=== PATIENT | female | born 1975 | race Caucasian/White ===

== ENCOUNTER 2016-10-04 20:49 | Emergency (ER) | payer BC ==
[2016-10-04] MEDS: NS 0.9% 1000 ML* 2,000 ML IV ONE ×2 (21:20→21:21)
[2016-10-04 21:21] LABS: Hematocrit 37 % (35-47); Hemoglobin 12.4 g/dl (12.0-16.0); Mean Corpuscular HGB Conc 34 g/dl (31-36); Mean Corpuscular Hemoglobin 31 pg (27-31); Mean Corpuscular Volume 92 fL (80-97); Mean Platelet Volume 9 um3 (7.4-10.4); Red Blood Count 3.96 10^6/ul (4.0-5.4); Red Cell Distribution Width 14 % (10.5-15); White Blood Count 13.3 10^3/ul (3.5-10.8)
[2016-10-04 21:39] LABS: ALT 47 U/L (7-52); Albumin 3.7 g/dL (3.2-5.2); Alkaline Phosphatase 52 U/L (34-104); BUN/Creatinine Ratio 16.5 (8-20); Blood Urea Nitrogen 15 mg/dL (6-24); C Reactive Protein 11.42 mg/L (< 5.00); CO2 Carbon Dioxide 21 mmol/L (22-32); Calcium 9.1 mg/dL (8.6-10.3); Chloride 102 mmol/L (101-111); EGFR African American 87.2 (>60); EGFR Non-African American 67.8 (>60); Globulin 2.3 g/dL (2-4); Sodium 125 mmol/L (133-145)
[2016-10-04 21:45] LABS: Glucose 575 mg/dL (70-100)
--- NOTE | 2016-10-04 22:52 | RAD ---
Indication: Post coital heavy vaginal bleeding. Comparison: November 05, 2013 Technique: Transvaginal pelvic ultrasound. Report: 10.1 x 4.2 x 4.9 cm anteverted uterus. No uterine lesions evident. 8.2 mm endometrium. No fluid evident in the endocervical canal. Only trace free fluid in the cul-de-sac. Neither the RIGHT or LEFT ovary could be visualized. 1.2 x 1.2 x 1.5 cm anechoic structure in the RIGHT adnexal region is low suspicion based on morphology and small size. IMPRESSION: 1. No abnormality of the uterus or endometrium evident. 2. Neither ovary could be definitively visualized. 3. Very low suspicion 1.2 cm cystic structure in the RIGHT adnexal region. This may represent an exophytic ovarian cyst or a paraovarian cyst.
[2016-10-04] MEDS ORDERED: Insulin REGULAR(*) 1 UNITS UNIT IV PUSH ONE (23:19)
[2016-10-04] MEDS ORDERED: NS 0.9% 1000 ML* 1,000 ML IV ONE (23:20)
[2016-10-05 00:11] LABS: Hematocrit 31 % (35-47); Hemoglobin 10.3 g/dl (12.0-16.0); Mean Corpuscular HGB Conc 33 g/dl (31-36); Mean Corpuscular Hemoglobin 30 pg (27-31); Mean Corpuscular Volume 92 fL (80-97); Mean Platelet Volume 9 um3 (7.4-10.4); Red Blood Count 3.43 10^6/ul (4.0-5.4); Red Cell Distribution Width 14 % (10.5-15); White Blood Count 13.3 10^3/ul (3.5-10.8)
[2016-10-05 00:35] LABS: Urine Bacteria Absent (Absent); Urine Bilirubin Negative (Negative); Urine Glucose 3+(>=500 mg/dL) (Negative); Urine Nitrite Negative (Negative)
[2016-10-05 01:11] VITALS: BP 107/58
--- NOTE | 2016-10-05 12:19 | ED ---
Brett Lopez Matthew, scribed for Benton Butler MD on 10/04/16 at 2108 . GI/ HPI - HPI Summary HPI Summary: A 41 y/o female presents to the ED by EMS with sudden, constant vaginal bleeding since 18:30 today s/p intercourse. Associated symptoms included hypotension and tachycardia per EMS, dizziness, and diaphoresis. She denies any foreign bodies during intercourse. The patient is not aware of any pregnancies. She is . Her BP upon arrival was 151/82 per EMS. Her lowest recorded BP was . LNMP was 3 weeks ago. SHx includes . PMHx: diabetes, HTN, and hypothyroidism. - History of Current Complaint Chief Complaint: EDBleedingDisorder Time Seen by Provider: 10/04/16 20:53 Stated Complaint: VAG BLEEDING Hx Obtained From: Patient Onset/Duration: Started Hours Ago, Atraumatic, Still Present Timing: Constant Severity: Moderate Current Severity: Moderate Vaginal Bleeding Description: Bright Red Pain Intensity: 0 Associated Signs and Symptoms: Positive: Dizziness, Diaphoresis Additional Signs & Symptoms: Positive: Vaginal Bleeding - Allergy/Home Medications Allergies/Adverse Reactions: Allergies Allergy/AdvReac Type Severity Reaction Status Date / Time No Known Allergies Allergy Verified 09/22/12 13:05 PMH/Surg Hx/FS Hx/Imm Hx Endocrine/Hematology History: Reports: Hx Diabetes, Hx Thyroid Disease - Cancer History Hx Chemotherapy: No Hx Radiation Therapy: No Infectious Disease History: No Infectious Disease History: Denies: Traveled Outside the [place] in Last 30 Days - Family History Family History: No FHx of Breast CA. - Social History Lives: With Family Substance Use Type: Reports: None Smoking Status (MU): Never Smoked Tobacco Review of Systems Positive: Skin Diaphoresis Eyes: Negative ENT: Negative Cardiovascular: Negative Respiratory: Negative Gastrointestinal: Negative Genitourinary: Other - vaginal bleeding Musculoskeletal: Negative Skin: Negative Neurological: Other - Dizziness Psychological: Normal All Other Systems Reviewed And Are Negative: Yes Physical Exam - Summary Physical Exam Summary: VITAL SIGNS: Reviewed. GENERAL: Patient is a well developed and nourished male who is in mild distress secondary to the CP. Patient is not in any acute respiratory distress. HEAD AND FACE: No signs of trauma. No ecchymosis, hematomas or skull depressions. No sinus tenderness. EYES: PERRLA, EOMI x 2, No injected conjunctiva, no nystagmus. EARS: Hearing grossly intact. Ear canals and tympanic membranes are within normal limits. MOUTH: Oropharynx within normal limits. NECK: Supple, trachea is midline, no adenopathy, no JVD, no carotid bruit, no c- spine tenderness, neck with full ROM. CHEST: Symmetric, no tenderness at palpation LUNGS: Clear to auscultation bilaterally. No wheezing or crackles. CVS: Regular rate and rhythm, S1 and S2 present, no murmurs or gallops appreciated. ABDOMEN: Soft, non-tender. No signs of distention. No rebound no guarding, and no masses palpated. Bowel sounds are normal. EXTREMITIES: FROM in all major joints, no edema, no cyanosis or clubbing. NEURO: Alert and oriented x 3. No acute neurological deficits. Speech is normal and follows commands. 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 External genitalia: within normal limits except for blood clots. No rashes, lesions or ecchymosis. Speculum exam: vaginal jacinto with no lesions, masses, or rashes, no lacerations were visualized. Cervix normal. No CMTs. No adnexal masses. Triage Information Reviewed: Yes Vital Signs On Initial Exam: Initial Vitals Temp Pulse Resp BP Pulse Ox 98.2 F 106 20 125/88 95 10/04/16 20:55 10/04/16 20:55 10/04/16 20:55 10/04/16 20:55 10/04/16 20:55 Vital Signs Reviewed: Yes Diagnostics - Vital Signs Vital Signs Temp Pulse Resp BP Pulse Ox 10/04/16 20:55 98.2 F 106 20 125/88 95 - Laboratory Lab Results: Lab Results 10/04/16 10/04/16 10/04/16 Range/Units 21:08 21:08 21:08 WBC 13.3 H (3.5-10.8) 10^3/ul RBC 3.96 L (4.0-5.4) 10^6/ul Hgb 12.4 (12.0-16.0) g/dl Hct 37 (35-47) % MCV 92 (80-97) fL MCH 31 (27-31) pg MCHC 34 (31-36) g/dl RDW 14 (10.5-15) % Plt Count 212 (150-450) 10^3/ul MPV 9 (7.4-10.4) um3 Neut % (Auto) 78.6 (38-83) % Lymph % (Auto) 13.6 L (25-47) % [place] % (Auto) 5.9 (1-9) % Eos % (Auto) 1.1 (0-6) % Baso % (Auto) 0.8 (0-2) % Absolute Neuts (auto) 10.4 H (1.5-7.7) 10^3/ul Absolute Lymphs (auto) 1.8 (1.0-4.8) 10^3/ul Absolute Monos (auto) 0.8 (0-0.8) 10^3/ul Absolute Eos (auto) 0.1 (0-0.6) 10^3/ul Absolute Basos (auto) 0.1 (0-0.2) 10^3/ul Absolute Nucleated RBC 0.02 10^3/ul Nucleated RBC % 0.1 Sodium 125 L (133-145) mmol/L Potassium TNP Chloride 102 (101-111) mmol/L Carbon Dioxide 21 L (22-32) mmol/L Anion Gap TNP BUN 15 (6-24) mg/dL Creatinine 0.91 (0.51-0.95) mg/dL Est GFR ( Amer) 87.2 (>60) Est GFR (Non-Af Amer) 67.8 (>60) BUN/Creatinine Ratio 16.5 (8-20) Glucose 575 H* (70-100) mg/dL Calcium 9.1 (8.6-10.3) mg/dL Total Bilirubin 0.50 (0.2-1.0) mg/dL AST TNP ALT 47 (7-52) U/L Alkaline Phosphatase 52 (34-104) U/L C-Reactive Protein 11.42 H (< 5.00) mg/L Total Protein 6.0 L (6.4-8.9) g/dL Albumin 3.7 (3.2-5.2) g/dL Globulin 2.3 (2-4) g/dL Albumin/Globulin Ratio 1.6 (1-3) Beta HCG, Quant < 0.60 mIU/mL Blood Type A Positive Antibody Screen Negative Crossmatch See Detail 10/04/16 Range/Units 21:50 WBC (3.5-10.8) 10^3/ul RBC (4.0-5.4) 10^6/ul Hgb (12.0-16.0) g/dl Hct (35-47) % MCV (80-97) fL MCH (27-31) pg MCHC (31-36) g/dl RDW (10.5-15) % Plt Count (150-450) 10^3/ul MPV (7.4-10.4) um3 Neut % (Auto) (38-83) % Lymph % (Auto) (25-47) % [place] % (Auto) (1-9) % Eos % (Auto) (0-6) % Baso % (Auto) (0-2) % Absolute Neuts (auto) (1.5-7.7) 10^3/ul Absolute Lymphs (auto) (1.0-4.8) 10^3/ul Absolute Monos (auto) (0-0.8) 10^3/ul Absolute Eos (auto) (0-0.6) 10^3/ul Absolute Basos (auto) (0-0.2) 10^3/ul Absolute Nucleated RBC 10^3/ul Nucleated RBC % Sodium (133-145) mmol/L Potassium 4.6 Chloride (101-111) mmol/L Carbon Dioxide (22-32) mmol/L Anion Gap BUN (6-24) mg/dL Creatinine (0.51-0.95) mg/dL Est GFR ( Amer) (>60) Est GFR (Non-Af Amer) (>60) BUN/Creatinine Ratio (8-20) Glucose (70-100) mg/dL Calcium (8.6-10.3) mg/dL Total Bilirubin (0.2-1.0) mg/dL AST 25 ALT (7-52) U/L Alkaline Phosphatase (34-104) U/L C-Reactive Protein (< 5.00) mg/L Total Protein (6.4-8.9) g/dL Albumin (3.2-5.2) g/dL Globulin (2-4) g/dL Albumin/Globulin Ratio (1-3) Beta HCG, Quant mIU/mL Blood Type Antibody Screen Crossmatch Result Diagrams: 10/04/16 23:02 10/04/16 21:50 Lab Statement: Any lab studies that have been ordered have been reviewed, and results considered in the medical decision making process. - Ultrasound No standard instances Ultrasound Interpretation: Positive (See Comments) - IMPRESSION: 1. No abnormality of the uterus or endometrium evident. 2. Neither ovary could be definitively visualized. 3. Very low suspicion 1.2 cm cystic structure in the RIGHT adnexal region. This may represent an exophytic ovarian cyst or a paraovarian cyst. Ultrasound Interpretation Completed By: Radiologist - EKG 22:04 Cardiac Rate: NL - 98 bpm EKG Rhythm: Sinus Rhythm EKG Interpretation: No ST elevation GIGU Course/Dx - Course Assessment/Plan: A 41 y/o female presents to the ED with acute vaginal bleeding after intercourse. Test results are WNL expect WBC of 13.3, hemoglobin 12.4, hematocrit 37, sodium 125, and glucose 575. The transvaginal US was WNL. Initially the patient was hypotensive and was given IV fluids and currently has a BP of 141/75, HR 97, O2 sat 97%. The patient was also given insulin since the patient was hyperglycemic. Pelvic exam shows large amount of blood Blood clots in the vault of the vagina. I remove all the blood cloths. I did not visualize a vaginal tear or laceration. Os was closed and there was no active bleeding. test is negative and pelvic US has no acute pathology. After initial IV fluid boluses patient continue to be hemodynamically stable and reports no more bleeding. She denies any dizziness or palpitations. I discussed the cause with Dr. Cabrera from [facility] and he recommends a repeat H&H if normal follow-up with PCP and [facility]. At this point, we are waiting for CBC results therefore, the patient will be sign-out to Dr. Meadows. If the CBC is normal the patient can be discharged home. If it has a significally decreased he will call back to Dr. Cabrera and consult for the patient. I believe that the hypotensive episode was secondary to a vasovagal episode. The patient is hemodynamically stable, A& Ox3, and there is no vaginal bleeding. - Diagnoses Differential Diagnoses - Female: Provider Diagnoses: Abnormal vaginal bleeding - Physician Notifications Discussed Care Of Patient With: Dr. Cabrera (CLEANING MACHINE OPERATOR) at 23:42 -- Notified of patient's history and recommends repeat H&H. If the repeat H&H is normal, he recommneds the patient follow-up with her PCP and [facility] [facility] [employer]. Discharge - Discharge Plan Condition: Stable Disposition: OTHER Discharge Disposition Comment: The patient is signed out to Dr. Meadows pending repeat CBC and disposition Patient Education Materials: Dysfunctional Uterine Bleeding (ED) Referrals: Deshawn Johnson MD [Primary Care Provider] - Mat Cabrera MD [Medical Doctor] - 2 Days Additional Instructions: Please follow-up with your primary care physician and Dr. Cabrera ([employer]INE [employer]) tomorrow. The documentation as recorded by the Brett wilde Matthew accurately reflects the service I personally performed and the decisions made by me, Benton Butler MD.
--- NOTE | 2016-10-29 04:03 | ED ---
Progress - Progress Note Progress Note: pt stable no further bleeding dx dub stable d/c home Course/Dx - Diagnoses Provider Diagnoses: Abnormal vaginal bleeding - Provider Notifications Discussed Care Of Patient With: Dr. Cabrera ([facility] [employer]) at 23:42 -- Notified of patient's history and recommends repeat H&H. If the repeat H&H is normal, he recommneds the patient follow-up with her PCP and [facility].
== END 2016-10-05 01:15 ==
LOC: ED 20:49
DX: N93.9 Abnormal uterine and vaginal bleeding, unspecified (principal); E11.65 Type 2 diabetes mellitus with hyperglycemia; I95.9 Hypotension, unspecified; Z32.02 Encounter for pregnancy test, result negative; R00.0 Tachycardia, unspecified
CPT/HCPCS: 36415; 76830; 80053; 81003; 81015; 84702; 85025; 86140; 86850; 86900; 86901; 86922; 87086; 93005; 96360; 96361; 99284